=== PATIENT | male | born 2005 | race African-American/Black ===

== ENCOUNTER → 2024-10-03 | Outpatient (CLI) | payer OTHER ==
[2024-10-03 15:04] LABS: Trichomonas vaginalis (AMP) NOT DETECTED (NEGATIVE)
[2024-10-03 15:28] LABS: GC DNA AMPLIFICATION NEGATIVE (NEGATIVE)
[2024-10-03 16:13] LABS: HIV 1&2 SCREEN NEGATIVE (NEGATIVE)
[2024-10-03 16:20] LABS: HEPATITIS C VIRUS ABY INDEX 0.03 INDEX (<0.8)
== END ==
LOC: M WUC 12:30
PROVIDERS: ATTEND Nurse Practitioner Family
DX: Z11.3 Encounter for screening for infections with a predominantly sexual mode of transmission (principal)